=== PATIENT | male | born 1985 | race Caucasian/White ===

== ENCOUNTER 2016-12-04 22:35 | Emergency (ER) | payer OTHER ==
[~2016-12-04] VITALS: Ht 182.9 cm; Wt 95.5 kg
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
[2016-12-04 22:56] VITALS: BP 138/93; PULSE 122; RESP 18; O2SAT 97
[2016-12-04] MEDS ORDERED: 0.9% Sodium Chloride 1,000 ML IV ONE (23:27)
[2016-12-04] MEDS: HYDROmorphone 0.5 mg/0.5 mL iSecure Syringe IVPUSH PRN (23:41)
[2016-12-04 23:52] LABS: BASOPHILS % (AUTO) 0.6 % (0-3); EOSINOPHILS % (AUTO) 3.2 % (0-5); MONOCYTES % (AUTO) 9.6 % (4-12); Mean Corpuscular Hemoglobin 32.2 pg (27.0-35.0); Mean Corpuscular Volume 92.6 fL (81-100); NEUTROPHILS % (AUTO) 62.1 % (40-74); Platelet Count 231 bil/L (150-400)
[2016-12-05 00:12] LABS: Magnesium 1.8 mg/dL (1.6-2.6)
[2016-12-05] MEDS: HYDROmorphone 0.5 mg/0.5 mL iSecure Syringe IVPUSH PRN ×3 (00:16→02:06)
[2016-12-05] MEDS ORDERED: HYDROmorphone 1 mg/mL Inj ONE (00:28)
[2016-12-05 01:38] VITALS: BP 116/66; PULSE 122; RESP 16; O2SAT 92
== END 2016-12-05 02:07 | disposition short-term general hospital (02) ==
LOC: SED 22:35
DX: T24.209A Burn of second degree of unspecified site of unspecified lower limb, except ankle and foot, initial encounter (principal); X03.0XXA Exposure to flames in controlled fire, not in building or structure, initial encounter; Y93.89 Activity, other specified; Y92.89 Other specified places as the place of occurrence of the external cause; Y99.8 Other external cause status
CPT/HCPCS: 16020; 36415; 80053; 83735; 85025; 96374; 96375; 96376; 99285; J1170; J1885; J7030